=== PATIENT | female | born 1980 | race Caucasian/White ===

== ENCOUNTER 2021-05-04 14:38 | Emergency (ER) | payer MEDICAID ==
[~2021-05-04] VITALS: Ht 167.6 cm; Wt 59.0 kg
[2021-05-04 14:50] VITALS: BP_SYST 116
--- NOTE | 2021-05-04 14:50 | NUR ---
DR CASANOVA AT BEDSIDE FOR EVALUATION
--- NOTE | 2021-05-04 14:50 | NUR ---
PT TO BED 7 FOR EVALUATION.
--- NOTE | 2021-05-04 14:55 | NUR ---
Pt walked in to ER with c/o bump under right breast and medication refill. Reports needing "Ativan or Xanax" Also requesting a refill of her mood stabilizer but she doesn't know the name or doses. V/S stable, no acute distress noted.
[2021-05-04] MEDS ORDERED: NEU300 PO (15:14)
[2021-05-04] MEDS ORDERED: ALPRAZolam 0.25 MG TABLET PO ONE (15:15)
--- NOTE | 2021-05-04 15:30 | NUR ---
Patient given written and verbal discharge instructions and verbalizes understanding. ER MD discussed with patient the results and treatment provided. Patient in stable condition. ID arm band removed. Rx of Gabapentin given. Patient educated on pain management and to follow up with PMD. Pain Scale . Opportunity for questions provided and answered. Medication side effect fact sheet provided.
[2021-05-04 15:33] VITALS: BP_SYST 116
--- NOTE | 2021-05-04 15:46 | NUR ---
Pt discharged, educated to not drive. Pt stated she had received a ride here and had one home.
== END 2021-05-04 15:30 | disposition home or self-care (01) ==
LOC: SED 14:38
DX: N63.0 Unspecified lump in unspecified breast (principal); F31.9 Bipolar disorder, unspecified; F41.9 Anxiety disorder, unspecified; Z88.6 Allergy status to analgesic agent; Z76.0 Encounter for issue of repeat prescription
CPT/HCPCS: 99283